=== PATIENT | female | born 1995 | race Caucasian/White ===

== ENCOUNTER 2017-10-10 21:37 | Emergency (ER) | payer MEDICAID ==
[2017-10-10 21:37] VITALS: BMI 25.7
--- NOTE | 2017-10-10 22:10 | ED PDOC ---
HPI: General Adult Time Seen by Provider: 10/10/17 22:10 Chief Complaint (Nursing): Abdominal Pain Chief Complaint (Provider): flank pain, abd pain History Per: Patient Additional Complaint(s): 22-year-old female with history of kidney stones presents to emergency department with fever and bilateral flank pain that started yesterday. Patient states she was seen at [facility] 3 weeks ago and was diagnosed with UTI and kidney stones at that time. She was sent home with antibiotic and symptoms did improve but have since returned as of yesterday. Patient states temp earlier was 103 and she took Motrin. She is nauseous but has not vomited. PMD: none Past Medical History Reviewed: Historical Data, Nursing Documentation, Vital Signs Vital Signs: Last Vital Signs Temp 98.7 F 10/11/17 03:23 Pulse 84 10/11/17 03:23 Resp 16 10/11/17 03:23 BP 90/54 L 10/11/17 03:23 Pulse Ox 96 10/11/17 03:23 - Medical History PMH: Kidney Stones - Surgical History Surgical History: No Surg Hx - Family History Family History: States: No Known Family Hx - Living Arrangements Living Arrangements: With Family - Social History Current smoker - smoking cessation education provided: No Alcohol: None Drugs: Denies - Home Medications Home Medications: Ambulatory Orders Medication Instructions Recorded Ca/Cholecalciferol/Fe/Folic 1 1 tab PO DAILY 09/01/15 [Basic's Vitamins] Ferrous Sulfate 325 mg PO BID #60 tab 09/03/15 Dicloxacillin [Dynapen] 500 mg PO BID 09/11/15 Metronidazole [Metrogel] 1 appl VAG DAILY 09/11/15 Sulfamethoxazole/Trimethoprim 1 tab PO BID #20 tab 09/11/15 [Bactrim DS 800 mg-160 mg] Nitrofurantoin Macrocrystals 100 mg PO BID #14 tab 10/11/17 [Macrobid] - Allergies Allergies/Adverse Reactions: Allergies Allergy/AdvReac Type Severity Reaction Status Date / Time ondansetron Allergy Mild hives Verified 10/10/17 21:44 [From Zofran (as hydrochloride)] ceftriaxone [From Rocephin] Allergy RASH Verified 10/11/17 03:38 Review of Systems ROS Statement: Except As Marked, All Systems Reviewed And Found Negative Constitutional: Positive for: Fever, Chills Cardiovascular: Negative for: Chest Pain Respiratory: Negative for: Cough Gastrointestinal: Positive for: Nausea, Abdominal Pain Genitourinary Female: Positive for: Dysuria, Frequency Musculoskeletal: Positive for: Back Pain Physical Exam - Reviewed Nursing Documentation Reviewed: Yes Vital Signs Reviewed: Yes - Physical Exam Appears: Positive for: Well, Non-toxic, No Acute Distress Skin: Negative for: Rash Eye Exam: Positive for: Normal appearance Cardiovascular/Chest: Positive for: Regular Rate, Rhythm Respiratory: Positive for: Normal Breath Sounds Gastrointestinal/Abdominal: Positive for: Soft. Negative for: Tenderness Back: Positive for: L CVA Tenderness (moderate), R CVA Tenderness (mild) Extremity: Positive for: Normal ROM Neurologic/Psych: Positive for: Alert, Oriented - Laboratory Results Result Diagrams: 10/10/17 23:45 10/10/17 23:45 - ECG O2 Sat by Pulse Oximetry: 97 Pulse Ox Interpretation: Normal - Other Rad Renal US X-Ray: Read By Radiologist X-Ray Interpretation: see below OB US X-Ray: Read By Radiologist X-Ray Interpretation: see below Medical Decision Making Medical Decision Makin-year-old female with fever and flank pain Plan: Blood cultures CBC CMP UA and culture PO tylenol IVF VBG test is positive. Patient made aware. Renal US and OB US ordered. UTI noted, 1 gram rocephin ordered. Shortly after receiving rocephin patient developed hives to entire body with no throat discomfort or shortness of breath. Patient states she now remembers that she was given rocephin before and has had allergic reaction in the past. 50 mg IV benadryl given. Renal US: FINDINGS: Aorta: The aorta is obscured. Inferior vena cava: The visualized portion of the IVC is patent. Right kidney: The right kidney measures 11.1 cm in length. No hydronephrosis. Left kidney: The left kidney measures 10.3 cm in length. No hydronephrosis. IMPRESSION: No hydronephrosis on either side. OB US: FINDINGS: Fetus: Single live intrauterine . biometry corresponds to a gestational age of 21 weeks and one day, with MELITON of 2017. Position: There is no comment on the presentation, but it appears to be breech. Heart rate: heart rate measures 158 beats per minutes. Placenta: The placenta is anterior and is not low-lying. No abruption demonstrated. Amniotic fluid: The amniotic fluid is adequate and the JOEY measures 10.3 cm. Cervix: The cervix measures 8.9 cm in length of the cervical os is closed. Other findings: EFW 384 g. IMPRESSION: Single live intrauterine corresponding to a gestational age of 21 weeks and one day. Patient feels better after Benadryl dose given. Prescription provided for Macrobid. Patient was transferred to labor and delivery for continued monitoring. Repeat vitals prior to d/c are stable, Temp: 98.7, HR 84, BP 90/54, RR 16, O2 96 % Disposition - Clinical Impression Clinical Impression: Urinary tract infection, Abdominal pain during , Back pain - Patient ED Disposition Is Patient to be Admitted: No Counseled Patient/Family Regarding: Studies Performed, Diagnosis, Need For Followup, Rx Given - Disposition [facility]errals[facility]] Disposition Time: 02:45 Condition: STABLE Additional Instructions: Take antibiotics as directed. Over the counter benadryl as needed for itching. Follow up with women's clinic. Prescriptions: Nitrofurantoin Macrocrystals [Macrobid] 100 mg PO BID #14 tab Instructions: Urinary Tract Infections in Adults, Low Back Pain (DC), - The Fifth Month Forms: [employer] ([place] Citizen) Results - Lab Results Lab Results: 10/10/17 10/10/17 10/10/17 23:45 23:45 23:45 WBC 9.0 RBC 3.38 L Hgb 9.8 L Hct 29.6 L MCV 87.6 MCH 29.0 MCHC 33.1 RDW 14.9 H Plt Count 251 MPV 7.4 Neut % (Auto) 89.2 H Lymph % (Auto) 4.9 L [place] % (Auto) 5.6 Eos % (Auto) 0.2 Baso % (Auto) 0.1 Neut # (Auto) 8.0 H Lymph # (Auto) 0.4 L [place] # (Auto) 0.5 Eos # (Auto) 0.0 Baso # (Auto) 0.0 Neutrophils % (Manual) Pending Lymphocytes % (Manual) Pending Monocytes % (Manual) Pending Platelet Estimate Pending pO2 VBG pH VBG pCO2 VBG HCO3 VBG Total CO2 VBG O2 Sat (Calc) VBG Base Excess VBG Potassium Sodium 135 Chloride 102 Glucose Lactate FiO2 Potassium 3.5 L Carbon Dioxide 21 L Anion Gap 16 BUN 9 Creatinine 0.6 L Est GFR ( Amer) > 60 Est GFR (Non-Af Amer) > 60 Random Glucose 123 H Calcium 9.3 Total Bilirubin 1.2 AST 17 ALT 21 Alkaline Phosphatase 60 Total Protein 6.9 Albumin 3.4 L Globulin 3.4 Albumin/Globulin Ratio 1.0 Venous Blood Potassium Urine Color Yellow Urine Clarity Cloudy Urine pH 7.0 Ur Specific [place] 1.020 Urine Protein 30 Urine Glucose (UA) Neg Urine Ketones Negative Urine Blood Negative Urine Nitrate Negative Urine Bilirubin Negative Urine Urobilinogen 0.2-1.0 Ur Leukocyte Esterase Mod Urine RBC (Auto) 9 H Urine Microscopic WBC 37 H Ur Squamous Epith Cells 4 Urine Bacteria Rare 10/10/17 23:41 WBC RBC Hgb Hct MCV MCH MCHC RDW Plt Count MPV Neut % (Auto) Lymph % (Auto) [place] % (Auto) Eos % (Auto) Baso % (Auto) Neut # (Auto) Lymph # (Auto) [place] # (Auto) Eos # (Auto) Baso # (Auto) Neutrophils % (Manual) Lymphocytes % (Manual) Monocytes % (Manual) Platelet Estimate pO2 43 VBG pH 7.40 VBG pCO2 37 L VBG HCO3 23.2 VBG Total CO2 24.0 VBG O2 Sat (Calc) 81.0 H VBG Base Excess -1.5 L VBG Potassium 3.5 L Sodium 134.0 Chloride 105.0 Glucose 121 H Lactate 1.3 FiO2 21.0 Potassium Carbon Dioxide Anion Gap BUN Creatinine Est GFR ( Amer) Est GFR (Non-Af Amer) Random Glucose Calcium Total Bilirubin AST ALT Alkaline Phosphatase Total Protein Albumin Globulin Albumin/Globulin Ratio Venous Blood Potassium 3.5 L Urine Color Urine Clarity Urine pH Ur Specific [place] Urine Protein Urine Glucose (UA) Urine Ketones Urine Blood Urine Nitrate Urine Bilirubin Urine Urobilinogen Ur Leukocyte Esterase Urine RBC (Auto) Urine Microscopic WBC Ur Squamous Epith Cells Urine Bacteria
[2017-10-10] MEDS ORDERED: Sodium Chloride 0.9% 1,000 ML IV STA (22:47)
[2017-10-10 23:44] LABS: VENOUS BLOOD GAS BASE EXCESS -1.5 mmol/L (0.0-2.0); VENOUS BLOOD GAS PCO2 37 mmHg (40-60); VENOUS BLOOD GAS PO2 43 mm/Hg (30-55)
[2017-10-10 23:49] LABS: BASO % 0.1 % (0.0-2.0); EOS % 0.2 % (0.0-4.0); HEMOGLOBIN 9.8 g/dL (12.0-16.0); LYMPH # 0.4 K/uL (1.0-4.3); LYMPH % 4.9 % (20.0-40.0); MEAN CELL VOLUME 87.6 fl (81.0-99.0); MEAN CORPUSCULAR HGB CONC 33.1 g/dL (33.0-37.0); MEAN PLATELET VOLUME 7.4 fl (7.2-11.7); MONO # 0.5 K/uL (0.0-0.8); MONO % 5.6 % (0.0-10.0); NEUT % 89.2 % (50.0-75.0); PLATELET COUNT 251 K/uL (130-400); RBC 3.38 Mil/uL (3.80-5.20); RED CELL DISTRIBUTION WIDTH 14.9 % (11.5-14.5)
[2017-10-10 23:53] LABS: SQUAMOUS EPITHIAL 4 /hpf (0-5); URINE BACTERIA RARE (<OCC); URINE BILIRUBIN NEGATIVE (NEGATIVE); URINE BLOOD NEGATIVE (NEGATIVE); URINE CLARITY CLOUDY (Clear); URINE COLOR YELLOW (YELLOW); URINE GLUCOSE (UA) NEG (Normal); URINE LEUKOCYTE ESTERASE MOD Leu/uL (Negative); URINE NITRATE NEGATIVE (NEGATIVE); URINE PROTEIN 30 mg/dL (NEGATIVE); URINE UROBILINOGEN 0.2-1.0 mg/dL (0.2-1.0)
[2017-10-10 23:57] LABS: ALBUMIN 3.4 g/dL (3.5-5.0); ALT/SGPT 21 U/L (9-52); AST/SGOT 17 U/L (14-36); BLOOD UREA NITROGEN 9 mg/dl (7-17); CALCIUM 9.3 mg/dL (8.4-10.2); GFR AFRICAN-AMERICAN > 60; GFR NON-AFRICAN AMERICAN > 60
[2017-10-11] MEDS ORDERED: cefTRIAXone (Rocephin) 1 gm Inj ONE (00:54)
[2017-10-11] MEDS ORDERED: Sodium Chloride 0.9% 1,000 ML IV STA (02:15)
[2017-10-11] MEDS ORDERED: DiphenhydrAMINE 50 mg/ml Inj IV STA (02:18)
[2017-10-11 03:40] VITALS: O2SAT 97
--- NOTE | 2017-10-11 04:30 | CP.PCM.CON ---
History of Present Illness - History of Present Illness History of Present Illness: OBGYN Consult Note: Pt is a 22 y/o female presenting to ED with complaints of fever, flank pain , and urinary frequency x 1 week. Pt reports going to an ED in [place] and receiving ABX treatment but is still having symptoms. Denies vaginal bleeding, discharge, pelvic pain. PMHX: Recurrent Kidney Stones PSurg Hx: Denies GYNHx: Denies hx of abnormal pap smears,fibroids, cyst. Periods irregular. LMP : August, unsure OBHx: 1 prior (2016), no complications, full term, No SAB/TOP Medications: Denies Allergies: Ceftriaxone (rash), Ondansatron (rash) SocialHx: Denies smoking, alcohol, drug use. Currently sexually active, not using contraceptions ED Course: POC dip + U/A +pyuria CBC, no leukocytosis, +anemia Renal US- no hydronephrosis OB U/S- single live IUP consistent with 21.1wks gestation, FHR 158 Review of Systems - Constitutional Constitutional: Chills, Fever, Weight Gain. absent: Excessive Sweating, Lethargy, Weight Loss - Cardiovascular Cardiovascular: absent: Chest Pain - Respiratory Respiratory: absent: Cough, Dyspnea - Gastrointestinal Gastrointestinal: Abdominal Pain. absent: Nausea, Vomiting Additional comments: Left flank pain - Genitourinary Genitourinary: Flank Pain, Urinary Frequency, Hx Renal/Bladder Calculi. absent : Dysuria - Reproductive: Female Reproductive:Female: Cycle Variable. absent: Abnormal Vaginal Bleeding, Genital Lesions, Vaginal Discharge, Vaginal Dryness, Vaginal Odor, Vaginal Pruritis Past Patient History - Infectious Disease Hx of Infectious Diseases: None - Past Social History Alcohol: None Drugs: Denies - CARDIAC Hx Cardiac Disorders: No - PULMONARY Hx Respiratory Disorders: No - NEUROLOGICAL Hx Neurological Disorder: No - RENAL Hx Kidney Stones: Yes - ENDOCRINE/METABOLIC Hx Endocrine Disorders: No - MUSCULOSKELETAL/RHEUMATOLOGICAL Hx Musculoskeletal Disorders: No - GASTROINTESTINAL Hx Gastrointestinal Disorders: No - GENITOURINARY/GYNECOLOGICAL Hx Genitourinary Disorders: No - PSYCHIATRIC Hx Psychophysiologic Disorder: No Hx Substance Use: No - SURGICAL HISTORY Hx Surgeries: No - ANESTHESIA Hx Anesthesia: No Meds Home Medications: Home Medication List Medication Instructions Recorded Confirmed Type Nitrofurantoin Macrocrystals 100 mg PO BID #14 tab 10/11/17 Rx [Macrobid] Allergies/Adverse Reactions: Allergies Allergy/AdvReac Type Severity Reaction Status Date / Time ondansetron Allergy Mild hives Verified 10/10/17 21:44 [From Zofran (as hydrochloride)] ceftriaxone [From Rocephin] Allergy RASH Verified 10/11/17 03:38 Physical Exam - Constitutional Appears: Well, Non-toxic - ENT Exam ENT Exam: Mucous Membranes Moist - Respiratory Exam Respiratory Exam: Clear to Auscultation Bilateral. absent: Accessory Muscle Use - Cardiovascular Exam Cardiovascular Exam: REGULAR RHYTHM, +S1, +S2. absent: Systolic Murmur - GI/Abdominal Exam GI & Abdominal Exam: Normal Bowel Sounds, Soft, Tenderness. absent: Distended, Guarding, Organomegaly, Rebound, Rigid Additional comments: Mild suprapubic tenderness - Back Exam Back exam: CVA tenderness (L) - Neurological Exam Neurological exam: Alert - Psychiatric Exam Psychiatric exam: Normal Affect, Normal Mood Results - Vital Signs Recent Vital Signs: Last Vital Signs Temp 98.7 F 10/11/17 03:23 Pulse 84 10/11/17 03:23 Resp 16 10/11/17 03:23 BP 90/54 L 10/11/17 03:23 Pulse Ox 97 10/11/17 03:40 - Labs Result Diagrams: 10/10/17 23:45 10/10/17 23:45 Labs: Laboratory Results - last 24 hr 10/10/17 10/10/17 10/10/17 23:41 23:45 23:45 WBC 9.0 RBC 3.38 L Hgb 9.8 L Hct 29.6 L MCV 87.6 MCH 29.0 MCHC 33.1 RDW 14.9 H Plt Count 251 MPV 7.4 Neut % (Auto) 89.2 H Lymph % (Auto) 4.9 L [place] % (Auto) 5.6 Eos % (Auto) 0.2 Baso % (Auto) 0.1 Neut # (Auto) 8.0 H Lymph # (Auto) 0.4 L [place] # (Auto) 0.5 Eos # (Auto) 0.0 Baso # (Auto) 0.0 pO2 43 VBG pH 7.40 VBG pCO2 37 L VBG HCO3 23.2 VBG Total CO2 24.0 VBG O2 Sat (Calc) 81.0 H VBG Base Excess -1.5 L VBG Potassium 3.5 L Sodium 134.0 135 Chloride 105.0 102 Glucose 121 H Lactate 1.3 FiO2 21.0 Potassium 3.5 L Carbon Dioxide 21 L Anion Gap 16 BUN 9 Creatinine 0.6 L Est GFR ( Amer) > 60 Est GFR (Non-Af Amer) > 60 Random Glucose 123 H Calcium 9.3 Total Bilirubin 1.2 AST 17 ALT 21 Alkaline Phosphatase 60 Total Protein 6.9 Albumin 3.4 L Globulin 3.4 Albumin/Globulin Ratio 1.0 Venous Blood Potassium 3.5 L Urine Color Urine Clarity Urine pH Ur Specific [place] Urine Protein Urine Glucose (UA) Urine Ketones Urine Blood Urine Nitrate Urine Bilirubin Urine Urobilinogen Ur Leukocyte Esterase Urine RBC (Auto) Urine Microscopic WBC Ur Squamous Epith Cells Urine Bacteria 10/10/17 23:45 WBC RBC Hgb Hct MCV MCH MCHC RDW Plt Count MPV Neut % (Auto) Lymph % (Auto) [place] % (Auto) Eos % (Auto) Baso % (Auto) Neut # (Auto) Lymph # (Auto) [place] # (Auto) Eos # (Auto) Baso # (Auto) pO2 VBG pH VBG pCO2 VBG HCO3 VBG Total CO2 VBG O2 Sat (Calc) VBG Base Excess VBG Potassium Sodium Chloride Glucose Lactate FiO2 Potassium Carbon Dioxide Anion Gap BUN Creatinine Est GFR ( Amer) Est GFR (Non-Af Amer) Random Glucose Calcium Total Bilirubin AST ALT Alkaline Phosphatase Total Protein Albumin Globulin Albumin/Globulin Ratio Venous Blood Potassium Urine Color Yellow Urine Clarity Cloudy Urine pH 7.0 Ur Specific [place] 1.020 Urine Protein 30 Urine Glucose (UA) Neg Urine Ketones Negative Urine Blood Negative Urine Nitrate Negative Urine Bilirubin Negative Urine Urobilinogen 0.2-1.0 Ur Leukocyte Esterase Mod Urine RBC (Auto) 9 H Urine Microscopic WBC 37 H Ur Squamous Epith Cells 4 Urine Bacteria Rare Assessment & Plan - Assessment and Plan (Free Text) Assessment: Assessment: Pt now with urinary tract infection discovered to have viable intrauterine at 21.1wks gestation. -Reviewed OB U/S report. FHR detected and wnl. -Discussed results with patient. unplanned. -Pt advised to f/u with OBGYN for further management of . -Encouraged to take PNV -SAB precautions given -Advised to complete ABX for UTI Patient verbalized understanding. Discussed case with OB Attending, Dr. Bhavana Ponce, PGY1
[2017-10-11 06:19] LABS: LYMPHOCYTE 12 % (20-50); MONOCYTE 3 % (0-10); NEUTROPHIL 85 % (42-75); TOTAL CELLS COUNTED 100
[2017-10-11 06:20] LABS: PLATELET ESTIMATE NORMAL (NORMAL)
[2017-10-11 06:23] LABS: ANISOCYTOSIS SLIGHT; HELMET CELLS SLIGHT
--- NOTE | 2017-10-11 08:54 | US ---
PROCEDURE: Ultrasound of the Kidneys HISTORY: b/l flank pain COMPARISON: None available. TECHNIQUE: Sonogram of the kidneys. FINDINGS: RIGHT KIDNEY: Measures: 11.0 x 4.5 x 5.5 cm. Normal in size, contour and echogenicity. No stone, solid mass lesion or hydronephrosis visualized. LEFT KIDNEY: Measures: 10.3 x 5.1 x 5.0 cm. Normal in size, contour and echogenicity. No stone, solid mass lesion or hydronephrosis visualized. OTHER FINDINGS: None. IMPRESSION: Unremarkable renal sonogram.
--- NOTE | 2017-10-11 08:58 | US ---
PROCEDURE: OB Pelvic Ultrasound HISTORY: with abd pain COMPARISON: None available. FINDINGS: UTERUS: Placenta: Anterior position: Transverse BPD: 5.0 cm compatible with estimated gestational age of 21 weeks, 2 days HC: 19.0 cm compatible with estimated gestational age of 21 weeks, 2 days HC: 15.8 cm compatible with estimated gestational age of 21 weeks, 0 days FL: 3.4 cm compatible with estimated gestational age of 20 weeks, 5 days JOEY: 10.3 cm Heart rate: 158 bpm. age (Ultrasound estimated): 21 weeks, 1 day Stacey-gestational hemorrhage: None. Date of delivery (Ultrasound estimated) : 02/20/2018 CERVIX: Measures 3.9 cm. Long and closed. No cervical abnormality seen. RIGHT OVARY: Not visualized. LEFT OVARY: Not visualized. FREE FLUID: None. OTHER FINDINGS: None. IMPRESSION: Single live intrauterine gestation with average ultrasound age of 21 weeks, 1 day. heart rate 158 beats per minute. Cervix long and closed.
[2017-10-11 11:50] VITALS: BP 102/75; PULSE 102; RESP 17; TEMP 99
== END 2017-10-11 03:31 | disposition home or self-care (01) ==
LOC: H.ER 21:37 → H.EROB 10-11 03:52
DX: O23.40 Unspecified infection of urinary tract in pregnancy, unspecified trimester (principal); Z87.442 Personal history of urinary calculi
CPT/HCPCS: 76770; 76815; 80053; 81003; 81025; 82803; 85025; 87040; 87086; 96361; 96365; 96375; 99284; J0696; J1200; J7040